=== PATIENT | male | born 1955 | race Caucasian/White ===

== ENCOUNTER → 2016-07-28 | Outpatient (CLI) | payer OTHER ==
[2005-08-31 08:59] VITALS: BP 128/90
[~2016-07-28] VITALS: Ht 180.3 cm; Wt 91.3 kg
[~2016-07-28] MED LIST: CHLOR-TABS4 MG PO; FLOMAX 0.40.4 MG/CAP PO; K-PHOS ORIGINA500 MG PO; LIPITOR20 MG PO; NATURAL MAGNES200 MG PO; PRILOSEC 20MG20 MG PO; SYNTHROID0.075 MG/T PO; ZETIA 10MG TAB10 MG PO
[2016-07-28 09:24] VITALS: BP 122/92; PULSE 78
[2016-07-28 10:45] VITALS: BP 117/85; PULSE 67
== END ==
LOC: COL.RAD 07-26 11:15
DX: Z85.72 Personal history of non-Hodgkin lymphomas (principal); Z85.528 Personal history of other malignant neoplasm of kidney
CPT/HCPCS: 25757

== ENCOUNTER → 2016-11-13 | Outpatient (CLI) | payer OTHER ==
[2005-08-31 08:59] VITALS: BP 128/90
[~2016-11-13] VITALS: Ht 180.3 cm; Wt 90.9 kg
[2016-11-13 08:26] VITALS: BP 146/86; PULSE 63; TEMP 98.2
[2016-11-13 10:00] VITALS: BP 97/74; PULSE 58
[2016-11-13 10:15] VITALS: BP 104/80; PULSE 58
[2016-11-13 10:30] VITALS: BP 100/80; PULSE 67
[2016-11-13 10:45] VITALS: BP 108/80; PULSE 67
[2016-11-13 11:01] LABS: BASO # 0.1 (0.0-0.2); BASO % 1.3 % (0.0-2.0); EOS # 0.5 (0.0-0.7); EOS % 8.5 % (0-4.0); GRAN # 3.7 (1.4-6.5); GRAN % 58.4 % (42.2-75.2); HEMATOCRIT 38.6 % (42.0-52.0); HEMOGLOBIN 12.5 g/dl (13.5-18.0); LYMPH # 1.5 (1.2-3.4); LYMPH % 23.6 % (20.0-51.0); MEAN CELL VOLUME 97 fl (80.0-100.0); MEAN CORPUSCULAR HEMOGLOBIN 31 pg (27.0-31.0); MEAN CORPUSCULAR HGB CONC 32 g/dl (33.0-37.0); MEAN PLATELET VOLUME 10.7 fl (7.4-10.4); MONO # 0.5 (0.1-0.6); MONO % 7.7 % (1.7-9.3); PLATELET COUNT 156 K/mm3 (130-400); RED BLOOD COUNT 3.98 M/mm3 (4.20-5.60); REDCELL DISTRIBUTION WIDTH-CV 13.8 % (11.5-14.5); WHITE BLOOD COUNT 6.3 K/mm3 (4.8-10.8)
[2016-11-13 12:12] VITALS: BP 100/74; PULSE 65
== END ==
LOC: SDCO 06:56
PROVIDERS: Pathology Anatomic Pathology & Clinical Pathology
DX: C83.35 Diffuse large B-cell lymphoma, lymph nodes of inguinal region and lower limb (principal); C85.90 Non-Hodgkin lymphoma, unspecified, unspecified site; Z85.810 Personal history of malignant neoplasm of tongue; Z92.3 Personal history of irradiation; Z92.21 Personal history of antineoplastic chemotherapy; Z85.59 Personal history of malignant neoplasm of other urinary tract organ; Z90.5 Acquired absence of kidney; Z80.6 Family history of leukemia; E78.5 Hyperlipidemia, unspecified; E03.9 Hypothyroidism, unspecified; K21.9 Gastro-esophageal reflux disease without esophagitis
CPT/HCPCS: J2704; J3010; J7120

== ENCOUNTER → 2016-11-30 | Outpatient (CLI) | payer OTHER | LOC: COL.VAS 10:30 | DX: Z51.81 Encounter for therapeutic drug level monitoring (principal); C85.90 Non-Hodgkin lymphoma, unspecified, unspecified site; I51.7 Cardiomegaly; Z79.899 Other long term (current) drug therapy ==

== ENCOUNTER → 2019-04-09 | Outpatient (CLI) | payer MEDICARE | LOC: COL.RAD 13:00 | DX: C83.35 Diffuse large B-cell lymphoma, lymph nodes of inguinal region and lower limb (principal); C82.08 Follicular lymphoma grade I, lymph nodes of multiple sites; Z90.5 Acquired absence of kidney; I77.810 Thoracic aortic ectasia | CPT/HCPCS: Q9967 ==